=== PATIENT | female | born 1995 | race Caucasian/White ===

== ENCOUNTER 2016-12-01 15:46 | Emergency (ER) | payer BC ==
--- NOTE | 2016-12-01 16:46 | UC ---
Lower Extremity/Ankle HPI - HPI Summary HPI Summary: 20 YEAR OLD FEMALE PRESENTS WITH COMPLAINS OF RIGHT ANKLE PAIN. - History of Current Complaint Stated Complaint: RIGHT ANKLE INJURY Time Seen by Provider: 12/01/16 16:44 Hx Obtained From: Patient Onset/Duration: Sudden Onset Severity Initially: Moderate Severity Currently: Moderate Pain Scale Used: 0-10 Numeric - 7 - Allergies/Home Medications Allergies/Adverse Reactions: Allergies Allergy/AdvReac Type Severity Reaction Status Date / Time No Known Allergies Allergy Verified 12/01/16 16:49 Home Medications: Home Medications Glycopyrrolate 2 mg PO DAILY 12/01/16 [History Confirmed 12/01/16] Levonorgestrel & Eth Estradiol [Vienva 0.1-20 mg-Mcg] 1 tab PO DAILY 12/01/16 [ History Confirmed 12/01/16] PMH/Surg Hx/FS Hx/Imm Hx Previously Healthy: Yes Review of Systems Constitutional: Negative Skin: Negative Eyes: Negative ENT: Negative Respiratory: Negative Cardiovascular: Negative Gastrointestinal: Negative Genitourinary: Negative Motor: Negative Neurovascular: Negative Musculoskeletal: Other: - RIGHT ANKLE SWELLING/PAIN Neurological: Negative Psychological: Negative All Other Systems Reviewed And Are Negative: Yes Physical Exam Triage Information Reviewed: Yes Eye Exam: Normal ENT Exam: Normal Dental Exam: Normal Neck exam: Normal Neck: Positive: 1 Respiratory Exam: Normal Cardiovascular Exam: Normal Abdominal Exam: Normal Musculoskeletal: Positive: Other: - RIGHT ANKLE SWELLING/SPRAIN Neurological Exam: Normal Psychological Exam: Normal Skin Exam: Normal Lower Extremity Course/Dx - Course Course Of Treatment: radiology report reviewed and RIGHT ANKLE RESULTS results discussed with patient with orthopedic f/u - Differential Dx/Diagnosis Provider Diagnoses: RIGHT ANKLE SPRAIN Discharge - Discharge Plan Condition: Stable Disposition: HOME Prescriptions: Ibuprofen TAB* [Motrin TAB* 800 MG] 800 mg PO Q6H #30 tab Patient Education Materials: Ankle Sprain (ED) Referrals: Sidney Kimball MD [Medical Doctor] -
[2016-12-01 16:48] VITALS: BP 144/94
--- NOTE | 2016-12-01 17:55 | RAD ---
Indication: RIGHT ankle pain anterior lateral aspect as well as pain on weightbearing post fall. Comparison: No relevant prior exams available on the [facility] [facility] for comparison. Technique: AP, mortise, and lateral views RIGHT ankle. Report: Soft tissue swelling over the lateral malleolus and suggestion of talocrural joint effusion. Negative for fracture or malalignment. Preserved joint spaces. IMPRESSION: Given lateral soft tissue swelling and talocrural joint effusion consider potential lateral supporting ligament injury.
== END 2016-12-01 18:25 | disposition home or self-care (01) ==
LOC: UCCORT 15:46
DX: S93.401A Sprain of unspecified ligament of right ankle, initial encounter (principal); X58.XXXA Exposure to other specified factors, initial encounter; Y93.9 Activity, unspecified; Y92.9 Unspecified place or not applicable
CPT/HCPCS: 99203; G0463

== ENCOUNTER 2017-11-11 09:44 | Emergency (ER) | payer BC ==
[2017-11-11 10:08] VITALS: BP 121/77
--- NOTE | 2017-11-11 10:45 | RAD ---
INDICATION: Chest pain for 2 days. COMPARISON: There are no relevant prior studies available for comparison. TECHNIQUE: Dual-energy PA and lateral views of the chest were obtained. FINDINGS: The heart is within normal limits in size. Mediastinal and hilar contours appear within normal limits. The lungs are clear. No pleural effusion or pneumothorax is seen. IMPRESSION: NO EVIDENCE FOR ACTIVE CARDIOPULMONARY DISEASE.
--- NOTE | 2017-11-11 11:03 | UC ---
Cardiac HPI - HPI Summary HPI Summary: 21 YO FEMALE comes to clinic today with a complaint of chest pain 2 days ago. The pain occurred after she had laid down to go to sleep in the evening. He was in the middle of her chest 7 out of 10 at its worst. Taking deep breaths and moving her chest could change the intensity of the pain. She did not feel short of breath or nauseous or feel like passing out at the time. She did not have any palpitations during the episode. It lasted at least a half an hour and then she was able to go to sleep and the pain was gone the morning. She is on a control pill. Is no family history of DVT or pulmonary embolus. She is not a smoker. She has no calf swelling or leg pain no recent travel. No fevers or chills no upper respiratory tract infection symptoms. No GERD symptoms. She had a similar episode a week prior but was shorter duration and less intensity and was also just before bed. She does occasionally have a skipped beat. The last time this happened was at least a month ago. She has not had any chest pain associated with the palpitations. She feels well whenever she feels a skipped beat. - History of Current Complaint Chief Complaint: UCChestPain Stated Complaint: CHEST PAINS (2 DAYS AGO) Time Seen by Provider: 11/11/17 09:58 Hx Last Menstrual Period: "two weeks ago" Pain Intensity: 0 - Allergy/Home Medications Allergies/Adverse Reactions: Allergies Allergy/AdvReac Type Severity Reaction Status Date / Time No Known Allergies Allergy Verified 11/11/17 10:02 Home Medications: Home Medications Levonorgestrel-Ethin Estradiol [Larissia 0.1-20 mg-Mcg] 1 tab PO DAILY 11/11/17 [History Confirmed 11/11/17] PMH/Surg Hx/FS Hx/Imm Hx Previously Healthy: Yes - Surgical History Surgical History: Yes Surgery Procedure, Year, and Place: Right Ankle Reconstruction, 2009; Right Elbow Reconstruction, 2007 - Family History Known Family History: Negative: Cardiac Disease Family History: NO FHX OF DVT/PE - Social History Alcohol Use: Occasionally Substance Use Type: None Smoking Status (MU): Never Smoked Tobacco Review of Systems Constitutional: Negative Skin: Negative Eyes: Negative ENT: Negative Respiratory: Negative Cardiovascular: Palpitations, Chest Pain - SEE HPI Gastrointestinal: Negative Genitourinary: Negative Motor: Negative Neurovascular: Negative Musculoskeletal: Negative Neurological: Negative Psychological: Negative Is Patient Immunocompromised?: No All Other Systems Reviewed And Are Negative: Yes Physical Exam Triage Information Reviewed: Yes Appearance: Well-Appearing, No Pain Distress, Well-Nourished Vital Signs: Initial Vital Signs Temp 98.3 F 11/11/17 10:03 Pulse 82 11/11/17 10:03 Resp 16 11/11/17 10:03 BP 121/77 11/11/17 10:03 Pulse Ox 100 11/11/17 10:03 Vital Signs Reviewed: Yes Eye Exam: Normal Neck exam: Normal Neck: Positive: Supple Respiratory Exam: Normal Respiratory: Positive: Chest non-tender, Lungs clear, Normal breath sounds, No respiratory distress Cardiovascular Exam: Normal Cardiovascular: Positive: RRR, No Murmur Abdominal Exam: Normal Abdomen Description: Positive: Nontender Bowel Sounds: Positive: Present Musculoskeletal Exam: Normal Musculoskeletal: Positive: Strength Intact, ROM Intact, No Edema, Other: - NO CALF TENDERNESS Neurological Exam: Normal Psychological Exam: Normal Skin Exam: Normal - Assessment/Plan Course Of Treatment: EKG AT 10:19; NSR 68BPM, NL ST, NO ECTOPY, PROLONGED OR OF 240. INDICATION: Chest pain for 2 days. COMPARISON: There are no relevant prior studies available for comparison. TECHNIQUE: Dual-energy PA and lateral views of the chest were obtained. FINDINGS: The heart is within normal limits in size. Mediastinal and hilar contours. appear within normal limits. The lungs are clear. No pleural effusion or pneumothorax is seen. IMPRESSION: NO EVIDENCE FOR ACTIVE CARDIOPULMONARY DISEASE. . <Electronically signed by Jim Gambino MD in OV > 11/11/17 1041. I discussed the chest x-ray and EKG with the patient. We discussed the potential causes of her 2 episodes of chest pain and also her intermittent palpitation. We discussed limitations here not being able to check a d-dimer and a troponin. The plan is to have her follow up with her primary care doctor if not completely improved. I discussed with her going to the emergency department if she has any further symptoms. - Clinical Impression Provider Diagnoses: CHEST PAIN Discharge - Sign-Out/Discharge Documenting (check all that apply): Patient Departure All imaging exams completed and their final reports reviewed: Yes - Discharge Plan Condition: Stable Disposition: HOME Patient Education Materials: Chest Pain (ED), Heart Palpitations (ED) Referrals: [facility] [Outside] Additional Instructions: FOLLOW UP WITH YOUR DOCTOR IF NOT COMPLETELY IMPROVED. WE ARE UNABLE TO CHECK LAB WORK FOR EVALUATION OF LUNG BLOOD CLOTS (DDIMER) OR HEART DAMAGE (TROPONIN) HERE IN CLINIC; GO TO THE EMERGENCY DEPARTMENT FOR ANY WORSENING OF YOUR CONDITION; CHEST PAIN, SHORTNESS OF BREATH, YOU FEEL LIKE PASSING OUT OR QUESTIONS OR CONCERNS. - Billing Disposition and Condition Condition: STABLE Disposition: Home
== END 2017-11-11 11:12 | disposition home or self-care (01) ==
LOC: UCCORT 09:44
DX: R07.9 Chest pain, unspecified (principal)
CPT/HCPCS: 71046; 93005; 99211; G0463

== ENCOUNTER 2017-12-20 17:05 | Emergency (ER) | payer BC ==
[2017-12-20 17:42] VITALS: BP 116/74
--- NOTE | 2017-12-20 17:58 | UC ---
Throat Pain/Nasal Boy HPI - HPI Summary HPI Summary: ST starting a week ago. No coughing, fever, vomiting. Denies trouble breathing or swallowing. - History of Current Complaint Chief Complaint: UCRespiratory Stated Complaint: SORE THROAT Time Seen by Provider: 12/20/17 17:43 Hx Obtained From: Patient Hx Last Menstrual Period: 11/25/17 ?: No Onset/Duration: Gradual Onset, Lasting Days Severity: Moderate Pain Intensity: 8 Associated Signs & Symptoms: Negative: Fever, Vomiting, Rash - Epiglottits Risk Factors Epiglottis Risk Factors: Negative - Allergies/Home Medications Allergies/Adverse Reactions: Allergies Allergy/AdvReac Type Severity Reaction Status Date / Time No Known Allergies Allergy Verified 12/20/17 17:37 PMH/Surg Hx/FS Hx/Imm Hx Previously Healthy: Yes - Surgical History Surgical History: Yes Surgery Procedure, Year, and Place: Right Ankle Reconstruction, 2009; Right Elbow Reconstruction, 2007 - Family History Known Family History: Negative: Cardiac Disease Family History: NO FHX OF DVT/PE - Social History Occupation: Student Alcohol Use: Weekly Alcohol Amount: weekends Substance Use Type: None Smoking Status (MU): Never Smoked Tobacco Review of Systems Constitutional: Negative Skin: Negative Eyes: Negative ENT: Sore Throat Respiratory: Negative Cardiovascular: Negative Gastrointestinal: Negative Genitourinary: Negative Motor: Negative Neurovascular: Negative Musculoskeletal: Negative Neurological: Negative Psychological: Negative Is Patient Immunocompromised?: No All Other Systems Reviewed And Are Negative: Yes Physical Exam Triage Information Reviewed: Yes Appearance: Well-Appearing Vital Signs: Initial Vital Signs Temp 97.8 F 12/20/17 17:38 Pulse 89 12/20/17 17:38 Resp 16 12/20/17 17:38 BP 116/74 12/20/17 17:38 Pulse Ox 100 12/20/17 17:38 Vital Signs Reviewed: Yes Eye Exam: Normal Eyes: Positive: Conjunctiva Clear ENT Exam: Normal ENT: Positive: Normal ENT inspection, Hearing grossly normal, Pharynx normal, TMs normal. Negative: Pharyngeal erythema, Nasal congestion Dental Exam: Normal Neck exam: Normal Neck: Positive: Supple, Nontender, No Lymphadenopathy Respiratory Exam: Normal Respiratory: Positive: Chest non-tender, Lungs clear, Normal breath sounds, No respiratory distress, No accessory muscle use Cardiovascular Exam: Normal Cardiovascular: Positive: RRR, No Murmur Musculoskeletal Exam: Normal Neurological Exam: Normal Neurological: Positive: Alert Psychological Exam: Normal Skin Exam: Normal Throat Pain/Nasal Course/Dx - Differential Dx/Diagnosis Provider Diagnoses: Acute pharyngitis, likely viral Discharge - Sign-Out/Discharge Documenting (check all that apply): Patient Departure All imaging exams completed and their final reports reviewed: Yes - Discharge Plan Condition: Stable Disposition: HOME Patient Education Materials: Pharyngitis (ED) Referrals: No Primary Care Phys,NOPCP [Primary Care Provider] - Additional Instructions: Rapid strep negative -- I suspect a virus. Use ibuprofen, lozenges, and listerine gargles as needed for pain. I expect your pain to go down over the next week or so. - Billing Disposition and Condition Condition: STABLE Disposition: Home
== END 2017-12-20 18:02 | disposition home or self-care (01) ==
LOC: UCCORT 17:05
DX: J02.9 Acute pharyngitis, unspecified (principal)
CPT/HCPCS: 87651; 99211; G0463